=== PATIENT | female | born 1995 | race Native Hawaiian/Other Pacific Islander ===

== ENCOUNTER 2020-10-10 16:50 | Emergency (ER) | payer OTHER ==
[~2020-10-10] VITALS: Ht 154.9 cm; Wt 101.2 kg
[2020-10-10 17:02] VITALS: BP 144/93; TEMP 98.7
== END 2020-10-10 19:38 | disposition home or self-care (01) ==
LOC: ED 16:50
DX: G43.909 Migraine, unspecified, not intractable, without status migrainosus (principal)
CPT/HCPCS: 96372; 99283; J3030

== ENCOUNTER 2022-05-08 18:28 | Emergency (ER) | payer OTHER ==
[~2022-05-08] VITALS: Ht 154.9 cm; Wt 101.2 kg
[2022-05-08 18:37] VITALS: TEMP 98.9
[2022-05-08 19:45] VITALS: BP 145/92
== END 2022-05-08 19:45 | disposition home or self-care (01) ==
LOC: ED 18:28
DX: K02.9 Dental caries, unspecified (principal)
CPT/HCPCS: 96372; 99283; J1885

== ENCOUNTER 2022-05-09 19:14 | Emergency (ER) | payer OTHER ==
[~2022-05-09] VITALS: Ht 154.9 cm; Wt 101.2 kg
[2022-05-09 19:20] VITALS: TEMP 98.9
[2022-05-09 20:21] LABS: PLATELET COUNT 336 K/uL (152-353)
[2022-05-09 21:50] VITALS: BP 119/80
== END 2022-05-09 21:50 | disposition home or self-care (01) ==
LOC: ED 19:14
PROVIDERS: Emergency Medicine
DX: F41.8 Other specified anxiety disorders (principal); Z98.818 Other dental procedure status
CPT/HCPCS: 36600; 80053; 82805; 85027; 93005; 96374; 99284; J2060